=== PATIENT | male | born 1970 | race Caucasian/White ===

== ENCOUNTER 2023-06-10 10:12 | Day surgery (SDC) | payer OTHER ==
[~2023-06-10] VITALS: Ht 177.8 cm; Wt 107.0 kg
[~2023-06-10 10:12] MED LIST: LR 1,000 ML IV SCH
[2023-06-10] MEDS ORDERED: ULTRAM 50MG TAB50 MG PO (10:55)
[2023-06-10] MEDS ORDERED: NORVASC 10MG10 MG PO (10:56)
[2023-06-10] MEDS ORDERED: VOLTAREN 75 DR75 MG PO (10:56)
[2023-06-10] MEDS ORDERED: PRILOSEC 20MG20 MG PO (10:56)
[2023-06-10] MEDS ORDERED: MINIPRESS 5M5 MG/CAP (10:57)
[2023-06-10] MEDS ORDERED: CRESTOR20 MG PO (10:58)
[2023-06-10] MEDS ORDERED: QUALITY CHOICE1 T22 PO (10:59)
[2023-06-10] MEDS ORDERED: OMEGA-3 FISH1000 MG PO (11:00)
[2023-06-10] MEDS ORDERED: Rocuronium 50 MG/5 ML Multi-Dose VIAL ONE (11:57)
[2023-06-10] MEDS ORDERED: fentaNYL 50 MCG/ML 5 ML VIAL ONE (11:57)
[2023-06-10] MEDS ORDERED: Ketorolac 30 MG/ML VIAL ONE (12:00)
[2023-06-10 12:56] VITALS: BP 130/89; PULSE 91; TEMP 98.1
--- NOTE | 2023-06-10 12:59 | NUR ---
1028 Patient ambulatory to bay 1 with a steady gait, breathing even and unlabored. Patient is alert and oriented. Consents reviewed and signed by patient. IV established. LR infusing via gravity at KVO. Call light in reach. Warm blanket provided.
[2023-06-10] MEDS ORDERED: NORCO 325 MG-51 TAB PO (13:27)
[2023-06-10] MEDS ORDERED: MOTRIN 600600 MG/TAB PO (13:27)
[2023-06-10] MEDS ORDERED: dexAMETHasone 10 MG/ML VIAL ONE (13:40)
[2023-06-10] MEDS ORDERED: Ondansetron 4 MG/2 ML VIAL ONE (13:40)
[2023-06-10] MEDS ORDERED: Topical Skin Adhesive 1 EACH (1 ML) TOP ONE (14:02)
[2023-06-10] MEDS ORDERED: HYDROmorphone 1 MG/1 ML SYRINGE [PACU/SDC ONLY] IV PRN (14:15)
[2023-06-10] MEDS ORDERED: Morphine 2 MG/1 ML VIAL [PACU/SDC ONLY] IV PRN (14:15)
[2023-06-10] MEDS ORDERED: fentaNYL 50 MCG/ML 1 ML SYRINGE/VIAL [PACU/SDC ONLY] IV PRN (14:15)
[2023-06-10] MEDS ORDERED: droPERidol 2.5 MG/ML 2 ML VIAL IV PRN (14:15)
[2023-06-10] MEDS ORDERED: hydrALAZINE 20 MG/ML 1 ML VIAL IV PRN (14:15)
[2023-06-10] MEDS ORDERED: Ondansetron 4 MG/2 ML VIAL IV PRN ×2 (14:15→15:00)
[2023-06-10] MEDS ORDERED: Meperidine 50 MG/ML 1 ML VIAL IV PRN (14:15)
[2023-06-10] MEDS ORDERED: Acetaminophen 325 MG TAB PO PRN (15:00)
[2023-06-10] MEDS ORDERED: Morphine 4 MG/ML VIAL IV PRN (15:00)
[2023-06-10] MEDS ORDERED: Ibuprofen 600 MG TAB PO PRN (15:00)
[2023-06-10] MEDS ORDERED: Glycopyrrolate 0.2 MG/ML 1 ML VIAL ONE (15:39)
[2023-06-10 15:50] VITALS: BP 122/76; PULSE 92; TEMP 97.5
[2023-06-10 16:05] VITALS: BP 118/83; PULSE 94
[2023-06-10 16:20] VITALS: BP 123/75; PULSE 90
[2023-06-10 16:35] VITALS: BP 122/76; PULSE 90
--- NOTE | 2023-06-10 16:50 | NUR ---
1605 HOB ELEVATED 60 DEGREES. TOLERATES PO WATER AND JUICE WITHOUT NAUSEA 1620 TOLERATES PO MUFFIN 1623 PO PAIN MED GIVEN (NORCO) 1 TAB PER PATIENT REQUEST PRIOR TO DISCHARGE AND DISTANCE HOME. RATES PAIN 3-06/08. 1625 DISCHARGE INSTRUCTIONS REVIEWED. PATIENT VERBALIZES UNDERSTANDING. COPY PROVIDED IN DISCHARGE FOLDER 1640 SITS ON EDGE OF BED. DRESSSES SELF, THEN AMBULATES TO BATHROOM WITH STANDBY ASSIST. ADMITS TO VOIDING WITHOUT DIFFICULTY. NO CHANGE IN APPEARANCE OF ABD INCISIONS
--- NOTE | 2023-06-10 16:50 | NUR ---
1550 RETURNS TO ROOM 1 PER CART WITH HOB ELEVATED 40 DEGREES. AWAKE, ALERT. RESP UNLABORED. VITAL SIGNS OBTAINED. ABD ROUND, SOFT. INCISIONS X 3 WITHOUT REDNESS OR DRAINAGE. REPORTS MILD DISCOMFORT. CALL LIGHT AT SIDE.
== END 2023-06-10 16:50 | disposition home or self-care (01) ==
LOC: SDCO 10:12
DX: K40.90 Unilateral inguinal hernia, without obstruction or gangrene, not specified as recurrent (principal); F17.290 Nicotine dependence, other tobacco product, uncomplicated; G47.33 Obstructive sleep apnea (adult) (pediatric); K21.9 Gastro-esophageal reflux disease without esophagitis
CPT/HCPCS: C1781; J0690; J1100; J1885; J2405; J2704; J3010; J7120